=== PATIENT | female | born 1975 | race Caucasian/White ===

== ENCOUNTER → 2017-02-01 15:02 | Outpatient (CLI) | payer BC | END | disposition home or self-care (01) | LOC: D.MAMMO 09:15 | DX: Z12.31 Encounter for screening mammogram for malignant neoplasm of breast (principal) ==

== ENCOUNTER → 2017-03-09 13:37 | Outpatient (CLI) | payer BC | END | disposition home or self-care (01) | LOC: D.MAMMO 08:30 | DX: R92.8 Other abnormal and inconclusive findings on diagnostic imaging of breast (principal) ==

== ENCOUNTER → 2017-03-17 16:55 | Outpatient (CLI) | payer BC | END | disposition home or self-care (01) | LOC: D.MAMMO 13:00 | DX: R92.8 Other abnormal and inconclusive findings on diagnostic imaging of breast (principal) ==